=== PATIENT | male | born 1990 | race African-American/Black ===

== ENCOUNTER 2017-09-18 10:25 | Emergency (ER) | payer MEDICARE, MEDICAID ==
[~2017-09-18] VITALS: Ht 182.9 cm; Wt 134.0 kg
[2017-09-18] MEDS ORDERED: ONDANSETRON HCL 4MG/2ML VIAL IV STA (11:39)
[2017-09-18] MEDS ORDERED: SODIUM CHLORIDE 0.9% 1,000 ML IV ONE (11:39)
[2017-09-18 11:58] LABS: BASOPHILS % 0.7 % (0.0-2.0); CHLORIDE 105 mEq/L (98-107); EOSINOPHILS % 1.7 % (0.0-5.0); HEMATOCRIT. 46.7 % (42.0-52.0); HEMOGLOBIN. 15.8 g/dL (14.0-18.0); LYMPHOCYTES % 17.5 % (20.0-50.0); MEAN CORPUSCULAR HEMOGLOBIN 27.9 pg (28.0-32.0); MEAN CORPUSCULAR VOLUME 82.3 fL (80.0-94.0); MEAN PLATELET VOLUME 8.2 fl (7.4-10.4); NEUTROPHILS % 73.1 % (40.0-76.0); PLATELET 297 x1000/uL (130-400); RED BLOOD CELL COUNT 5.68 mill/uL (4.7-6.1); RED CELL DISTRIBUTION WIDTH 13.5 % (11.6-14.6)
[2017-09-18 12:04] LABS: CARBON DIOXIDE 24 mEq/L (21-32)
[2017-09-18 12:48] VITALS: BP 124/74
== END 2017-09-18 12:49 | disposition home or self-care (01) ==
LOC: ER 11:54
DX: R11.2 Nausea with vomiting, unspecified (principal); F20.9 Schizophrenia, unspecified
CPT/HCPCS: 36415; 80053; 85025; 96361; 96374; 99284; J2405; J7030

== ENCOUNTER 2024-07-07 13:31 | Emergency (ER) | payer MEDICARE, MEDICAID ==
[~2024-07-07] VITALS: Ht 185.4 cm; Wt 78.0 kg
[2024-07-07 13:34] VITALS: BP 115/70; PULSE 101; TEMP 98.7; O2SAT 99
[2024-07-07] MEDS ORDERED: LIDOCAINE HCL/EPINEPHRINE 1%-EPI 1:100,000 50 ML VIAL INFIL ONE (14:15)
[2024-07-07] MEDS: LIDOCAINE HCL/EPINEPHRINE 1%-EPI 1:100,000 20 ML VIAL INFIL NR (14:25)
[2024-07-07 15:30] VITALS: RESP 16
== END 2024-07-07 15:32 | disposition home or self-care (01) ==
LOC: ER 13:31
DX: T16.2XXA Foreign body in left ear, initial encounter (principal); F20.9 Schizophrenia, unspecified; F12.10 Cannabis abuse, uncomplicated; X58.XXXA Exposure to other specified factors, initial encounter; Y93.89 Activity, other specified; Y92.89 Other specified places as the place of occurrence of the external cause; Y99.8 Other external cause status
CPT/HCPCS: 99284; 69200; J3490

== ENCOUNTER 2025-03-30 13:45 | Emergency (ER) | payer MEDICARE, MEDICAID ==
[~2025-03-30] VITALS: Ht 182.9 cm; Wt 90.7 kg
[2025-03-30 14:15] LABS: BASOPHILS % 0.6 % (0.0-2.0); EOSINOPHILS % 1.5 % (0.0-5.0); HEMATOCRIT. 43.3 % (42.0-52.0); HEMOGLOBIN. 14.7 g/dL (14.0-18.0); LYMPHOCYTES % 25.5 % (20.0-50.0); MEAN CORPUSCULAR HEMOGLOBIN 28.4 pg (28.0-32.0); MEAN CORPUSCULAR HGB CONC 34.1 g/dL (31.0-37.0); MEAN CORPUSCULAR VOLUME 83.5 fL (80.0-94.0); MEAN PLATELET VOLUME 7.8 fl (7.4-10.4); MONOCYTES % 7.7 % (2.0-8.0); NEUTROPHILS % 64.7 % (40.0-76.0); PLATELET 306 x1000/uL (130-400); RED BLOOD CELL COUNT 5.18 mill/uL (4.7-6.1); RED CELL DISTRIBUTION WIDTH 13.6 % (11.6-14.6); WHITE BLOOD COUNT 12.1 x1000/uL (4.5-11.0)
[2025-03-30 14:16] VITALS: PULSE 112; RESP 28; O2SAT 96
[2025-03-30] MEDS: ALBUTEROL (0.083%) 2.5MG/3ML NEB HHN STA (14:16)
[2025-03-30] MEDS: IPRATROPIUM BROMIDE (0.02%) 0.5MG/2.5ML NEB HHN STA (14:16)
[2025-03-30] MEDS: PREDNISONE 20MG TABLET PO STA (14:20)
[2025-03-30 14:22] LABS: CHLORIDE 105 mEq/L (98-107); POTASSIUM 3.5 mEq/L (3.5-5.1); SODIUM 139 mEq/L (136-145)
[2025-03-30 14:23] LABS: CALCIUM 9.3 mg/dL (8.7-10.4); CARBON DIOXIDE 25 mEq/L (21-32)
[2025-03-30 14:28] LABS: CREATININE 0.9 mg/dL (0.6-1.3); GLUCOSE 138 mg/dL (70-105); UREA NITROGEN BLOOD 8 mg/dL (9-23)
[2025-03-30 14:36] LABS: TROPONIN I HIGH SENSITIVITY < 4 ng/L (3.0-53)
[2025-03-30] MEDS: LORAZEPAM 1MG TABLET PO ONE (14:56)
[2025-03-30] MEDS ORDERED: P50 MT (15:11)
[2025-03-30] MEDS ORDERED: ALBU18HF2 IH (15:11)
[2025-03-30] MEDS ORDERED: HYDR50TA55 MT (15:12)
[2025-03-30 15:36] VITALS: BP 117/86; PULSE 102; RESP 14; TEMP 37.1; O2SAT 99
== END 2025-03-30 15:39 | disposition home or self-care (01) ==
LOC: ER 13:45
DX: J44.1 Chronic obstructive pulmonary disease with (acute) exacerbation (principal); F41.9 Anxiety disorder, unspecified; F12.90 Cannabis use, unspecified, uncomplicated; F20.9 Schizophrenia, unspecified; Z79.899 Other long term (current) drug therapy
CPT/HCPCS: 99285; 71045; 80048; 85025; 84484; 36415; 94640; 93005; J7512; 94070

== ENCOUNTER 2025-06-29 14:43 | Emergency (ER) | payer MEDICARE, MEDICAID ==
[~2025-06-29] VITALS: Ht 182.9 cm; Wt 90.0 kg
[~2025-06-29 14:43] MED LIST: ALBU18HF2 IH; HYDR50TA55 MT; P50 MT
[2025-06-29 14:48] VITALS: O2SAT 99
[2025-06-29 15:38] LABS: CLARITY URINE CLEAR (CLEAR); COLOR URINE YELLOW (YELLOW); GLUCOSE URINE NEGATIVE (NEGATIVE); KETONES URINE TRACE (NEGATIVE); LEUKOCYTE ESTERASE URINE NEGATIVE (NEGATIVE); NITRITE URINE NEGATIVE (NEGATIVE); OCCULT BLOOD URINE NEGATIVE (NEGATIVE); PH URINE 5.0 (4.5-8.0); PROTEIN URINE NEGATIVE (NEGATIVE); SPECIFIC GRAVITY URINE 1.026 (1.005-1.030); UROBILINOGEN URINE 0.2 E.U./dL (0.2-1.0)
[2025-06-29] MEDS: CEFTRIAXONE SODIUM 500MG VIAL IM ONE (17:07)
[2025-06-29 17:12] VITALS: BP 130/91; PULSE 88; RESP 16; TEMP 36.7; O2SAT 99
[2025-06-29] MEDS ORDERED: DOXY100T2 MT (17:14)
== END 2025-06-29 17:30 | disposition home or self-care (01) ==
LOC: ER 14:43
DX: I86.1 Scrotal varices (principal); F12.10 Cannabis abuse, uncomplicated; Z11.3 Encounter for screening for infections with a predominantly sexual mode of transmission; Z79.899 Other long term (current) drug therapy; Z86.59 Personal history of other mental and behavioral disorders
CPT/HCPCS: 99285; 93976; 87491; 87591; 81003; 76870; 96372; J0696